=== PATIENT | male | born 1965 ===

== ENCOUNTER → 2019-11-23 | Outpatient (CLI) | payer BC, OTHER ==
[~2019-11-23] VITALS: Ht 175.3 cm; Wt 90.7 kg
[~2019-11-23] MED LIST: HUMIRA40 MG/0.8 SUBQ; IRON325 PO; MEN'S MULTIVIT1 EACH PO; MERCAPTOPURINE50 MG PO; METHOCARBAMOL500 M2 PO; NEURONTIN300 MG PO; TRAMADOL 50 MG50 MG PO; ZYRTEC10 M5 PO
[2019-11-23 09:58] VITALS: BP 163/83
--- NOTE | 2019-11-23 10:23 | NUR ---
Pain Clinic Assessment: 1. History of Osteoarthritis: BACK History of Rheumatoid Arthritis: Not Applicable 2. Height: 5 ft. 9 in. 175.3 cm. Weight: 200.0 lb. oz. 90.720 kg. Patient's BMI: 29.5 3. Vital Signs: BP: 163/83 Pulse: 71 Resp: 16 Temp: 02 Sat: 98 ECG Mon: 4. Pain Intensity: 2 5. Fall Risk: Dizziness: N Needs help standing or walking: N Fallen in the last 3 months: N Fall risk comments: 6. Patient on Blood Thinner: None 7. History of Hypertension: N 8. Opioid Therapy greater than 6 weeks: N Opiate Contract Signed: 9. Risk Assessment Tool Provided: 10. Functional Assessment Tool: 11. Recreational Drug Use: Never Drug Type: Tobacco Use: Never Smoker Tobacco Type: Amount or Packs/day: How Many Years: Alcohol Use: No Frequency: Quant:
--- NOTE | 2019-12-10 16:53 | HPC ---
[facility] [address] [place] [address] PAIN MANAGEMENT CONSULTATION Name: GLORIA DO Room #: REG VINAY PenningtonCorrine#: [id number] Admission: 11/23/19 Attend Phys: Silvio Azul MD Discharge: Date of : 67 Report #: [id number] THIS REPORT FOR: cc: Jamin Ness MD, Neal A. MD Brown,Silvio Winchester MD ~ CC: Silvio Ness DATE OF SERVICE: 11/23/2019 CHIEF COMPLAINT: Upper back and thoracic pain. HISTORY OF PRESENT ILLNESS: The patient is a 54-year-old gentleman who has been experiencing upper thoracic back pain. He was using a mowing device. While he was driving forward, he was looking backwards on the riding machine. He did this for quite some time. After the mowing session, he continued to have pain and discomfort. This has been quite problematic. He has a history of Crohn's disease. He does not take nonsteroidal anti-inflammatory medications. He has had shoulder surgery in 2011. He feels that he has a pinched nerve in his back. He rates it as a 3 today, sometimes it can rise to the level of 4. When it is at its worst, there is an ache down into his right arm through his shoulder and has some neck pain. Pain is worse when he is sitting or standing vertical looking to the right. Pain is better when he is lying down with his head slightly elevated. He has noted some improvement with the use of pain medications as well as muscle relaxers. Today, he describes it as steady, aching and 2-3 depending on his activity level. He notes increased pain with extending his arm when he is driving. More pain if he is working on a computer with his arm extended. ALLERGIES: No known drug allergies. MEDICATIONS: 1. Multivitamin. 2. Adalimumab 40 mg subcutaneously weekly. 3. Mercaptopurine 50 mg. 4. Tramadol p.r.n. as needed 50 mg, last taken 2 weeks ago. 5. Methocarbamol 500 mg, last taken 1 week ago. 6. Zyrtec 10 mg. 7. Iron 325 mg. PAST MEDICAL HISTORY: Liver disease, Crohn's disease, stomach problems, joint disease/arthritis, now with degenerative joint disease. PAST SURGICAL HISTORY: Right shoulder labrum repair 2011, appendectomy 2005. [facility] [address] [address] PAIN MANAGEMENT CONSULTATION Name: GLORIA DO Room #: KILLIAN PenningtonCorrine#: [id number] Admission: 11/23/19 Attend Phys: Silvio Azul MD Discharge: Date of : 67 Report #: [id number] SOCIAL HISTORY: He is working, works as a project management advisor. He is working at this juncture. REVIEW OF SYSTEMS: Questionnaire generally good health, fatigue, Crohn's disease, headaches, wears glasses, mouth sores, insomnia, episodic. LABORATORY DATA: MRI of the thoracic spine dated 11/09/2019: 1. T1-T2: Narrowing, right paracentral protrusion without central or foraminal compromise. 2. T2-T3: Minimal bulge with mild right foraminal narrowing. 3. T3-T4: There is facet hypertrophy without canal or foraminal compromise. 4. T4-T5: There is facet hypertrophy without canal or foraminal compromise. 5. T5-T6: There is left paracentral protrusion without canal or foraminal compromise. 6. T8-T9: There is minimal left paracentral protrusion without canal compromise. 7. T9-T10 There is minimal bulge and facet hypertrophy without central or foraminal compromise. 8. T11-T12: There is minimal disk bulge without canal or foraminal compromise. Impression: Mild degenerative changes in the thoracic spine as described. No evidence of thoracic compromise or fracture. PAIN CLINIC ASSESSMENT AND PQRS: 1. Height 5 feet 9 inches, weight 220 pounds. Pain intensity 2/10. 2. Fall history: The patient has not fallen in the last 3 months. 3. Blood thinner: The patient is not on a blood thinning medication. 4. Hypertension: The patient is not being treated for hypertension. 5. Opioids greater than 6 weeks: The patient is not on opioid regimen. He has used tramadol in the past. 6. Risk assessment tool: Low for opioid use. 7. Functional assessment tool: . 8. Recreational drug use: The patient denies. 9. Tobacco: The patient denies. 10. Alcohol. The patient denies frequent alcohol use. PHYSICAL EXAMINATION: GENERAL: The patient is a well-developed, well-nourished white male. Appears his stated age. He is alert and oriented x 3. His affect is appropriate. Speech is fluent. HEENT: Normocephalic, atraumatic. Extraocular eye muscles are intact. Sclerae nonicteric. Mucous membranes are moist. NECK: Without adenopathy or JVD. The patient has some pain and discomfort in the right arm with pain that radiates down into the arm and into the forearm. Sometimes notes some numbness and tingling in his fingers. Has pain in the mid back area near the paraspinal area. Also, he notes some pain and discomfort in [address] [address] PAIN MANAGEMENT CONSULTATION Name: GLORIA DO Room #: REG [facility]#: [id number] Admission: 11/23/19 Attend Phys: Silvio Azul MD Discharge: Date of : 67 Report #: [id number] the area of the right scapula. Extending his neck backwards can cause pain and discomfort with pain that radiates down into the right shoulder, worsening of pain in the forearm. MUSCULOSKELETAL: The patient without significant scoliosis, kyphosis or lordosis. Upper extremity muscle strength judged to be 5/5 for the major muscle groups in the upper extremity. Deep tendon reflexes are +1 at the biceps bilaterally. Lower extremity muscle strength exam was unremarkable. IMPRESSION: 1. Cervical radiculopathy involving the right arm with pain in the anterior arm, forearm with pain the back. 2. Liver disease. 3. Crohn's disease. 4. Stomach problems. 5. Joint disease/arthritis, now with degenerative joint disease. RECOMMENDATIONS: We discussed treatment options with the patient. At this juncture, the patient does not take nonsteroidal anti-inflammatory medications because of Crohn's disease. At this point, we will try a conservative approach. The patient would like to try the less invasive option at this juncture. He will try gabapentin. He will take medications as prescribed. He will start at a dose of 300 mg daily and continue as directed to 300 mg t.i.d. We explained that the medication may take some time to rise to a level where it might be effective. He will call us if he has any concerns. We would like to thank you for letting us participate in his care. We hope he continues to improve. <ELECTRONICALLY SIGNED> By: Silvio Azul MD 12/10/19 [id number] [id number] Silvio Azul MD /nt
== END ==
LOC: EDSEX 06:44 → PAIN 06:44
PROVIDERS: ATTEND Anesthesiology Pain Medicine
DX: M54.16 Radiculopathy, lumbar region (principal); M54.6 Pain in thoracic spine; K76.89 Other specified diseases of liver; K50.90 Crohn's disease, unspecified, without complications; K92.9 Disease of digestive system, unspecified; M19.90 Unspecified osteoarthritis, unspecified site